=== PATIENT | male | born 2005 | race Caucasian/White ===

== ENCOUNTER 2025-05-19 19:52 | Emergency (ER) | payer OTHER ==
[~2025-05-19] VITALS: Ht 182.9 cm; Wt 72.6 kg
[2025-05-19 20:07] VITALS: BP 133/81; O2SAT 99
[2025-05-19] MEDS ORDERED: 0.9 % SODIUM CHLORIDE 1,000 ML IV SCH (21:45)
[2025-05-19] MEDS ORDERED: ACETAMINOPHEN 500 MG GEL..CAP PO ONE ×2 (21:45→21:57)
[2025-05-19 22:28] LABS: BASO % 0.4 % (0.1-1.2); EOS # 0.11 (0.04-0.54); EOS % 1.4 % (0.7-7.0); LYMPH # 2.56 (1.18-3.74); LYMPH % 32.4 % (19.3-53.1); MEAN PLATELET VOLUME 10.20 fl (9.4-12.4); MONO # 0.62 (0.24-0.82); MONO % 7.9 % (4.7-12.5); NEUT # 4.56 (1.56-6.13); NEUT % 57.8 % (34.0-71.1); RED CELL DISTRIBUTION WIDTH 13.8 % (11.6-14.4)
[2025-05-19 23:19] LABS: AST/SGOT 9.0 U/L (15-37); BILIRUBIN TOTAL 0.4 mg/dL (0.3-1.2); BUN CREA RATIO 15.0 (7.0-25.0); CREATININE SERUM 0.91 mg/dL (0.70-1.30); GFR 104.18; GLOBULINA 3.3 G/DL (2.4-3.5); GLUCOSE FASTING 91.0 mg/dL (65-100); OSMOLALITY SERUM 281.0 MOSM/KG (275-295)
[2025-05-19 23:23] LABS: ALT/SGPT 22.0 U/L (12-78)
== END 2025-05-20 02:05 | disposition home or self-care (01) ==
LOC: ER 19:52
PROVIDERS: General Practice
DX: R51.9 Headache, unspecified (principal); X00.1 Exposure to smoke in uncontrolled fire in building or structure; Z88.1 Allergy status to other antibiotic agents
CPT/HCPCS: 36415; 82803; 93005; 96365; 96366; 99282; J7030